=== PATIENT | male | born 1960 | race Caucasian/White ===

== ENCOUNTER 2020-11-28 22:44 | Inpatient (IN) | payer OTHER ==
[~2020-11-28] VITALS: Ht 177.8 cm; Wt 83.9 kg
[2020-11-28 22:45] VITALS: BP 181/90
[2020-11-28] MEDS ORDERED: NORCO 10-325 T1 EACH PO (22:53)
[2020-11-28] MEDS ORDERED: GABAPENTIN600 M1 PO (22:54)
[2020-11-28 23:00] LABS: ABSOLUTE BASOPHILS 0.2 thou/uL (0.0-0.2); ABSOLUTE EOSINOPHILS 0.1 thou/uL (0.0-0.7); ABSOLUTE LYMPHOCYTES 2.2 thou/uL (0.8-5.3); ABSOLUTE MONOCYTES 0.9 thou/uL (0.0-1.2); ABSOLUTE NEUTROPHILS 8.5 thou/uL (1.6-8.1); BASOPHILS 1.4 %; EOSINOPHILS 0.8 %; HEMATOCRIT 45.9 % (42.0-52.0); HEMOGLOBIN 15.5 gm/dL (14.0-18.0); MCH 30.4 pg (26.0-34.0); MCHC 33.8 g/dL (28.0-37.0); MCV 89.9 fL (80.0-100.0); MONOCYTES 7.3 %; NUCLEATED RBCS 0 /100WBC; PLATELET COUNT* 195 thou/uL (150-400); POLYS 71.5 %; RBC 5.11 mil/uL (4.50-6.00); WBC 11.8 thou/uL (4.0-11.0)
[2020-11-28 23:10] LABS: CALCIUM 8.8 mg/dL (8.5-10.1); CREATININE 0.8 mg/dL (0.6-1.3); POTASSIUM 3.8 mmol/L (3.5-5.1)
[2020-11-28 23:11] LABS: INR 1.1; PROTIME 11.3 Seconds (9.20-11.50)
[2020-11-28 23:20] LABS: ALBUMIN 4.1 g/dL (3.4-5.0); MAGNESIUM 1.9 mg/dL (1.8-2.4); TOTAL BILIRUBIN 0.5 mg/dL (<0.1-1.0); TOTAL PROTEIN 8.4 g/dL (6.4-8.2)
[2020-11-29] VITALS (9 sets, daily range): BP systolic 129–148; BP diastolic 68–84
--- NOTE | 2020-11-29 09:43 | EKG ---
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 : 1960 Requested By: Karime Davila Order Number: [id number] MD: Brandon Galvan Measurements Intervals [place] Rate: 78 P: 27 ME: 147 QRS: 11 QRSD: 94 T: 51 QT: 371 QTc: 423 Interpretive Statements Sinus rhythm Borderline ST depression, diffuse leads Minimal ST elevation, anterior leads No previous ECG available for comparison Electronically Signed On 11-29-2020 9:42:57 CDT by Brandon Galvan [email or web address] <ELECTRONICALLY SIGNED> By: Brandon Galvan MD, [facility] 11/29/20 0942 [id number] [id number] Brandon Galvan MD, [facility] /EPI
--- NOTE | 2020-11-29 09:44 | EKG ---
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1960 Requested By: Karime Davila Order Number: [id number] MD: Brandon Galvan Measurements Intervals [place] Rate: 71 P: 13 MT: 146 QRS: 11 QRSD: 89 T: -2 QT: 385 QTc: 419 Interpretive Statements Sinus rhythm Consider left ventricular hypertrophy Borderline T abnormalities, inferior leads Compared to ECG 11/28/2020 22:42:09 no change Electronically Signed On 11-29-2020 9:44:30 CDT by Brandon Galvan [email or web address] <ELECTRONICALLY SIGNED> By: Brandon Galvan MD, [facility] 11/29/20 0944 0208 0208 Brandon Galvan MD, [facility] /EPI
--- NOTE | 2020-11-29 09:53 | CON ---
[address] [address] CONSULTATION Name: MARAL TOMLINSON Room: [place] [address] ADM IN M.R.#: [id number] Admission: 11/29/20 Attend Phys: Ricardo Calderon Discharge: Date of : 60 Report #: [id number] THIS REPORT FOR: cc: Physician not on staff Physician not on staff Brandon Galvan MD [facility] ~ DATE OF CONSULTATION: 11/29/2020 HISTORY OF PRESENT ILLNESS: The patient is a 60-year-old white male who I was asked to see in the Emergency Room today after he was noted to have a non-STEMI. The patient has no previous history of heart disease. He has never had a cardiac evaluation. He stays very active. However, for the past several weeks, he has had increasing shortness of breath. It has progressively gotten worse. However, he denies any fever, cough, lower extremity edema. He apparently was tested for COVID-19 that was negative. He has had 2 shots of the vaccine. For the past 24 hours, he noticed a tightness in his chest. It goes into his arms. It can make him diaphoretic, nauseated. Because of chest tightness, he finally called ambulance last night, was brought here to [place]. He was noted to have an elevated troponin. I was asked to see him for further evaluation and treatment. He denied the pain being related to food. It is worse when he takes deep breath. He has noticed episodes of his heart will race but he has had no syncope. PAST MEDICAL HISTORY: He has had shoulder surgery. CURRENT MEDICATIONS: His only medications include hydrocodone for shoulder pain. No history of hypertension, diabetes, hyperlipidemia. There are no known drug allergies. FAMILY HISTORY: His mother had a heart attack. 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 He is from [facility]. He currently was on a trip to [place] and was driving back to [place] and has been in a truck stop the last couple of days where he called the ambulance too. No smoking. Rarely drinks alcohol. 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 REVIEW OF SYSTEMS: No history of stroke, asthma, GI bleeding. He had hepatitis C 20 years ago. He was not treated, actually had a liver biopsy. No history of kidney disease, cancer, psychiatric illness, chronic skin condition. PHYSICAL EXAMINATION: GENERAL: Revealed a middle-aged male, appeared in no acute distress. VITAL SIGNS: Blood pressure 150/70, pulse is 80, he is afebrile. HEENT: He was anicteric. Conjunctivae are pink. Mucous [place] [address] CONSULTATION Name: MARAL TOMLINSON Room: [facility] IN [facility]#: [id number] Admission: 11/29/20 Attend Phys: Ricardo Calderon Discharge: Date of : 60 Report #: [id number] NECK: Veins are not distended. No carotid bruits. Supple. CHEST: Clear to auscultation. EXTREMITIES: Posterior tibial pulse 2+ bilaterally. SKIN: Cool and dry. NEUROLOGIC: Nonfocal. LYMPHATIC: No adenopathy. MUSCULOSKELETAL: No joint effusion. LABORATORY DATA: His ECG on admission showed a sinus rhythm with ST segment depression in leads I, II, III, aVF, V4, V5 and V6. His workup in the Emergency Room last night, he had a portable chest x-ray that showed no evidence of pulmonary edema or pneumonia. There was some scarring. His lab work, sodium 140, creatinine 0.8. SGOT 103, SGPT 79. His troponin on admission was 6.45, this morning is 10.94. His white blood cell count 11.8, hemoglobin 15.5. His COVID antigen stat test was negative. IMPRESSION AND RECOMMENDATIONS: 1. Non-ST elevation myocardial infarction. Recommend cardiac catheterization. 2. Dyspnea on exertion. Rule out cardiomyopathy. 3. Previous history of hepatitis C that was apparently non-treated. <ELECTRONICALLY SIGNED> By: Brandon Galvan MD, FACC 11/29/20 0953 0726 [id number] Galvan MD, FAC /nt
--- NOTE | 2020-11-29 17:55 | NUR ---
PT REQUESING TO LEAVE AMA. RISK OF LEAVING AMA WERE EXPLAINED TO THE PATIENT. CHARGE NURSE INFOMRED. CHARGE NURSE SPOKE WITH PT. PT STILL WANTING TO LEAVE AFTER RISK WERE EXPLAINED TO HIM. AMA PAPERS SIGNED BY PATIENT. PT WALKED OUT OF ROOM WITH HIS .
--- NOTE | 2020-11-29 18:25 | CARD ---
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 Brandon Galvan MD Reports Analyst: Nereida Ward RN Monitor: Consuelo Warren RN, CVRN Scrub: Kwame Mares RTR Procedures Performed diagnostic cardiac catheterization Indication Abnormal ECG, Non-STEMI , Chest pain Admission/Lab Medications/Medications given during procedure Heparin Unfract. Procedure Narrative The patient was brought urgently to the Cardiac Catheterization Laboratory and was prepped and draped in a sterile manner. The right wrist was infiltrated with 1% Lidocaine subcutaneous anesthesia. IV conscious sedation was used throughout procedure with appropriate monitoring and was performed in the presence of a registered nurse who was an independent trained observer other than the physician performing the procedure. A 6 sheath was inserted into the right radial artery. Coronary angiography was performed using coronary diagnostic catheters. The right coronary system was accessed and visualized with a Diagnostic catheter. The left coronary system was accessed and visualized with a Diagnostic catheter. The left ventricle was accessed and visualized with a Diagnostic catheter. Left ventricular/Aortic Valve gradient assessed via catheter pullback. Left ventriculogram [place] [address] CARDIAC CATH REPORT Name: MARAL TOMLINSON Room: [address]#: [id number] Admission: 11/29/20 Attend Phys: Ricardo Calderon Discharge: Date of : 60 Report #: [id number] Closure device was deployed with a 6 Fr vascband. The patient tolerated the procedure well and there were no complications associated with the procedure. There was no hematoma. Intraoperative Conscious Sedation Sedation start time: 10:10 Case end Time: 10:28 Versed 2.0 mg Fluoro Time: 2.0 minutes Dose: DAP 31694 cGycm2 769 mGy Coronary Angiography The patient's coronary anatomy is right dominant. Diagnostic Cath Left Main 60% ostial LAD 80% mid stenosis Diagonal 3 large vessel with proximal 90% stenosis Circumflex 70% ostial stenosis. Mid circumflex was acutely occluded with slow antegrade flow OM1 small vessel with 90% proximal stenosis Right Coronary 30% proximal and 50% mid stenosis R PDA small vessel completely occluded and filled retrograde by left coronary collaterals. RPLV medium sized vessel with 90% proximal stenosis Left Ventriculography The left ventricular ejection fraction is estimated to be 60-65%. Left ventricular wall motion abnormalities are not present. There is 1+ mitral insufficiency. Hemodynamics The aortic pressure is 100/64 mmHg with a mean of 80 mmHg. The left ventricular pressure is 122/4 mmHg with a mean of mmHg. The left ventricular end diastolic pressure is 14 mmHg. There was no gradient across the aortic valve upon pullback. Pullback from the left ventricle to the aorta revealed no gradient across the aortic valve. Conclusion 1. 60% ostial left main stenosis 2. 80% mid LAD stenosis, and 90% stenosis of a large 3rd diagonal branch. 3. Mid circumflex was acutely occluded [place] [address] CARDIAC CATH REPORT Name: MARAL TOMLINSON Room: [address] IN [facility].#: [id number] Admission: 11/29/20 Attend Phys: Ricardo Calderon Discharge: Date of : 60 Report #: [id number] 4. 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 5. LVEF 60-65% Recommendations CABG <ELECTRONICALLY SIGNED> By: Brandon Galvan MD, [facility] 11/29/20 1825 24 1825David Claudia Galvan MD, FACC /INF
== END 2020-11-29 18:00 | disposition left against medical advice (07) | DRG 282 ==
LOC: M.ERS 22:44 → M.TBA-ER 11-29 00:21 → M.2W 11-29 16:06
PROVIDERS: Emergency Medicine; ADMIT Internal Medicine; ATTEND Internal Medicine
PROC: B2151ZZ Fluoroscopy of Left Heart using Low Osmolar Contrast (ICD-10-PCS; principal; 2020-11-29)
PROC: B2111ZZ Fluoroscopy of Multiple Coronary Arteries using Low Osmolar Contrast (ICD-10-PCS; principal; 2020-11-29)
PROC: 4A023N7 Measurement of Cardiac Sampling and Pressure, Left Heart, Percutaneous Approach (ICD-10-PCS; principal; 2020-11-29)
DX: I21.4 Non-ST elevation (NSTEMI) myocardial infarction (principal); I25.110 Atherosclerotic heart disease of native coronary artery with unstable angina pectoris; Z53.29 Procedure and treatment not carried out because of patient's decision for other reasons; Z86.19 Personal history of other infectious and parasitic diseases; Z20.822 Contact with and (suspected) exposure to COVID-19